=== PATIENT | male | born 1960 | race Caucasian/White ===

== ENCOUNTER 2016-03-20 16:55 | Emergency (ER) | payer OTHER ==
[2016-03-20] MEDS ORDERED: SODIUM CHLORIDE 0.9% 1,000 ML IV STA ×4 (17:04→20:32)
[2016-03-20] MEDS ORDERED: SODIUM CHLORIDE 0.9% 500 ML IV STA (17:04)
[2016-03-20] MEDS ORDERED: RX INFO: IV CONTRAST WAS GIVEN 1 EACH MISC MISCELLANE PRN (17:04)
[2016-03-20] MEDS ORDERED: ACETAMINOPHEN IV (For NPO) 1,000 MG in EMPTY BAG 1 BAG IVPB STA (17:05)
[2016-03-20 17:10] LABS: Glucose,Whole Blood 149 mg/dL (75-99)
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
[2016-03-20 17:34] LABS: Basophils % (A) 0 %; CH 33.8; CHCM 34.8; Eosinophils # (A) 0.1 k/uL (0-0.7); Eosinophils % (A) 2 %; HDW 2.35; HGB 13.6 gm/dL (13.0-17.5); Luc # (Auto) 0.13; Luc % (Auto) 3; Lymphocytes # (A) 1.8 k/uL (1.0-4.8); Lymphocytes % (A) 37 %; MCH 32.3 pg (25.0-35.0); MCHC 33.2 g/dL (31.0-37.0); MCV 97.4 fL (80.0-100.0); Mean Platelet Volume 7.3; Monocytes # (A) 0.4 k/uL (0-1.0); Monocytes % (A) 8 %; Neutrophils # (A) 2.5 k/uL (1.3-7.7); Neutrophils % (A) 51 %; RBC 4.21 m/uL (4.30-5.90); RDW 12.4 % (11.5-15.5); WBC 4.9 k/uL (3.8-10.6); WBC (Perox) 5.01
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
[2016-03-20 17:40] LABS: INR 1.1 (<1.1); Prothrombin Time 10.6 sec (9.0-12.0)
[2016-03-20 17:44] LABS: ALT 74 U/L (21-72); AST 107 U/L (17-59); Alkaline Phosphatase 59 U/L (38-126); Anion Gap 19 mmol/L; Blood Urea Nitrogen 14 mg/dL (9-20); Calcium 9.3 mg/dL (8.4-10.2); Carbon Dioxide 19 mmol/L (22-30); Chloride 106 mmol/L (98-107); Glucose 143 mg/dL (74-99); Non-African American GFR(MDRD) >60 (>60 ml/min/1.73 sqM); Potassium 3.4 mmol/L (3.5-5.1); Sodium 144 mmol/L (137-145); Total Bilirubin 0.7 mg/dL (0.2-1.3); Total Protein 7.7 g/dL (6.3-8.2)
[2016-03-20 17:50] LABS: Alcohol 143 mg/dL
[2016-03-20 18:03] LABS: Creatine Kinase 414 U/L (55-170)
[2016-03-20 18:08] LABS: Appearance,Urine Clear (Clear); Bilirubin,Urine Negative (Negative); Glucose,Urine (UA) Negative (Negative); Ketones,Urine Trace (Negative); Leukocyte Esterase,Urine Negative (Negative); Mucus,Urine Rare /hpf; Nitrite,Urine Negative (Negative); PH, Urine 6.5 (5.0-8.0); Particle Count 3909; Protein,Urine 1+ (Negative); RBC,Urine 3 /hpf (0-5); Specific Gravity,Urine 1.018 (1.001-1.035); UA Billing (MACRO vs. MICRO) MICRO; Urobilinogen,Urine <2.0 mg/dL (<2.0); WBC,Urine 1 /hpf (0-5)
[2016-03-20 18:15] LABS: Troponin I <0.012 ng/mL (0.000-0.034)
[2016-03-20 18:16] LABS: Creatine Kinase MB 3.9 ng/mL (0.0-2.4)
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
[2016-03-20] MEDS ORDERED: ceFAZolin 2 GM in SODIUM CHLORIDE 0.9% 100 ML IVPB STA (18:40)
[2016-03-20] MEDS ORDERED: DIPH,PERTUS(ACELL)TETVAC-LF 0.5 ML VIAL IM ONE (18:41)
[2016-03-20] MEDS ORDERED: MORPHINE SULFATE 4 MG/ML SYRINGE IVP STA (18:48)
[2016-03-20] MEDS ORDERED: LORazepam 2 MG/ML SYRINGE IV STA (20:32)
[2016-03-20] MEDS ORDERED: levETIRAcetam IV 1,500 MG in SALINE 1 100ML.BAG IVPB STA (20:32)
--- NOTE | 2016-03-20 21:53 | CT ---
EXAMINATION TYPE: CT brain wo con DATE OF EXAM: 03/20/2016 9:46 PM COMPARISON: Today HISTORY: Seizure today. CT DLP: 1198.00 mGycm Automated exposure control for dose reduction was used. FINDINGS: There is cerebral cortical atrophy. There is no mass effect or midline shift. There is no sign of int racranial hemorrhage. There is mucosal thickening in the left maxillary sinus extending into the left nasopharynx. Calvarium is intact. IMPRESSION: Cerebral atrophy. No acute intracranial abnormality. No change. Expansile mucosal thickening in left maxillary sinus is unchanged.
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
[2016-03-20 22:39] VITALS: TEMP 99.1
[2016-03-20 22:41] VITALS: RESP 18
[2016-03-20 23:04] VITALS: BP 137/78; PULSE 115
[2016-03-21] MEDS ORDERED: levETIRAcetam IV 1,000 MG in SALINE 1 100ML.BAG IVPB SCH (09:00)
== END 2016-03-20 23:26 | disposition home or self-care (01) ==
LOC: EC 16:55
DX: S01.511A Laceration without foreign body of lip, initial encounter (principal); S06.9X1A Unspecified intracranial injury with loss of consciousness of 30 minutes or less, initial encounter; S03.2XXA Dislocation of tooth, initial encounter; S00.81XA Abrasion of other part of head, initial encounter; F10.129 Alcohol abuse with intoxication, unspecified; Y90.6 Blood alcohol level of 120-199 mg/100 ml; V19.9XXA Pedal cyclist (driver) (passenger) injured in unspecified traffic accident, initial encounter; F17.200 Nicotine dependence, unspecified, uncomplicated; Z23 Encounter for immunization
CPT/HCPCS: 12014; 99291; 96365; 90471; 96367; 96375; 36415; 93005; 86900; 86901; 80053; 82550; 82553; 84484; 85025; 85610; 85730; 86850; 81001; 80306; 80320; 71010; 72170; 72125; 70486; 70450; 71260; 74177; 90715; 96361; J2060; J2270; J0690; Q9967; J0131; J1953

== ENCOUNTER 2016-05-04 12:21 | Inpatient (IN) | payer OTHER ==
[2016-05-04] MEDS ORDERED: SODIUM CHLORIDE 0.9% 1,000 ML IV STA (12:45)
[2016-05-04] MEDS ORDERED: LORazepam 2 MG/ML SYRINGE IV STA ×2 (12:45→14:17)
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
[2016-05-04 13:21] LABS: Basophils % (A) 0 %; CH 33.4; CHCM 34.3; Eosinophils % (A) 1 %; HCT 41.1 % (39.0-53.0); HDW 2.56; HGB 13.7 gm/dL (13.0-17.5); Luc # (Auto) 0.18; Luc % (Auto) 2; Lymphocytes % (A) 26 %; MCH 32.6 pg (25.0-35.0); MCHC 33.3 g/dL (31.0-37.0); MCV 97.8 fL (80.0-100.0); Mean Platelet Volume 7.7; Monocytes # (A) 0.3 k/uL (0-1.0); Monocytes % (A) 4 %; Neutrophils # (A) 4.9 k/uL (1.3-7.7); Neutrophils % (A) 67 %; RDW 13.1 % (11.5-15.5); WBC 7.4 k/uL (3.8-10.6); WBC (Perox) 7.51
--- NOTE | 2016-05-04 13:31 | XR ---
EXAMINATION TYPE: XR chest 1V DATE OF EXAM: 05/04/2016 1:25 PM HISTORY: Seizure. REFERENCE: Previous study dated 03/20/2016. FINDINGS: The lungs are clear. Pleural spaces are clear. Heart size is normal. IMPRESSION: NORMAL CHEST.
[2016-05-04 13:37] LABS: ALT 21 U/L (21-72); AST 32 U/L (17-59); Alcohol 14 mg/dL; Alkaline Phosphatase 71 U/L (38-126); Anion Gap 23 mmol/L; Blood Urea Nitrogen 9 mg/dL (9-20); Calcium 10.1 mg/dL (8.4-10.2); Carbon Dioxide 14 mmol/L (22-30); Chloride 109 mmol/L (98-107); Glucose 144 mg/dL (74-99); Non-African American GFR(MDRD) >60 (>60 ml/min/1.73 sqM); Potassium 3.9 mmol/L (3.5-5.1); Sodium 146 mmol/L (137-145); Total Bilirubin 0.7 mg/dL (0.2-1.3); Total Protein 7.8 g/dL (6.3-8.2)
[2016-05-04] MEDS ORDERED: LORazepam 2 MG/ML SYRINGE IV PRN ×3 (14:16)
[2016-05-04] MEDS ORDERED: SODIUM CHLORIDE 0.9% 1,000 ML with MVI, ADULT NO.4 WITH VIT K 10 ML, THIAMINE 100 MG, F... IV ONE ×4 (14:17)
[2016-05-04] MEDS ORDERED: NALOXONE 0.4 MG/ML 1 ML VIAL IV PRN (14:19)
[2016-05-04] MEDS ORDERED: ONDANSETRON 4 MG/2 ML VIAL IVP PRN (14:19)
[2016-05-04 15:02] LABS: Magnesium 1.9 mg/dL (1.6-2.3)
[2016-05-04] MEDS: THIAMINE 100 MG TAB PO SCH (17:51)
[2016-05-04] MEDS ORDERED: cloNIDine HCL 0.1 MG TAB PO PRN (20:10)
[2016-05-04] MEDS ORDERED: TEMAZEPAM 15 MG CAP PO PRN (20:10)
[2016-05-04] MEDS ORDERED: HYDROcodone/APAP 5-325MG 1 EACH TAB PO PRN (20:10)
[2016-05-04 21:34] LABS: Creatine Kinase 129 U/L (55-170)
[2016-05-04] MEDS: cloNIDine HCL 0.1 MG TAB PO SCH (21:49)
[2016-05-04] MEDS: HEPARIN SODIUM,PORCINE 5,000 UNIT/ML 1 ML VIAL SQ SCH (22:27)
[2016-05-04 23:22] LABS: Appearance,Urine Clear (Clear); Bilirubin,Urine Negative (Negative); Glucose,Urine (UA) Negative (Negative); Ketones,Urine Negative (Negative); Leukocyte Esterase,Urine Negative (Negative); Nitrite,Urine Negative (Negative); Protein,Urine Negative (Negative); Specific Gravity,Urine 1.014 (1.001-1.035); UA Billing (MACRO vs. MICRO) CHEM; Urobilinogen,Urine <2.0 mg/dL (<2.0)
[2016-05-05] MEDS: 0.9% NACL WITH KCL 20 MEQ/L 1,000 ML with MVI, ADULT NO.4 WITH VIT K 10 ML, THIAMINE 10... IV SCH ×12 (08:08→16:17)
[2016-05-05] MEDS: HEPARIN SODIUM,PORCINE 5,000 UNIT/ML 1 ML VIAL SQ SCH ×2 (08:29→20:13)
[2016-05-05] MEDS: cloNIDine HCL 0.1 MG TAB PO SCH ×2 (08:29→20:13)
[2016-05-05] MEDS: PANTOPRAZOLE 40 MG TABLET PO SCH (08:29)
[2016-05-05 08:39] LABS: Basophils % (A) 0 %; CH 33.1; CHCM 34.5; Eosinophils # (A) 0.1 k/uL (0-0.7); Eosinophils % (A) 3 %; HCT 37.4 % (39.0-53.0); HDW 2.52; HGB 12.6 gm/dL (13.0-17.5); Luc # (Auto) 0.12; Luc % (Auto) 3; Lymphocytes # (A) 1.3 k/uL (1.0-4.8); Lymphocytes % (A) 27 %; MCH 32.5 pg (25.0-35.0); MCHC 33.7 g/dL (31.0-37.0); MCV 96.4 fL (80.0-100.0); Mean Platelet Volume 7.9; Monocytes # (A) 0.2 k/uL (0-1.0); Monocytes % (A) 5 %; Neutrophils # (A) 3.1 k/uL (1.3-7.7); Neutrophils % (A) 63 %; RBC 3.88 m/uL (4.30-5.90); RDW 12.9 % (11.5-15.5); WBC (Perox) 5.06
[2016-05-05 08:51] LABS: Anion Gap 12 mmol/L; Blood Urea Nitrogen 9 mg/dL (9-20); Calcium 9.2 mg/dL (8.4-10.2); Carbon Dioxide 19 mmol/L (22-30); Chloride 109 mmol/L (98-107); Glucose 91 mg/dL (74-99); Non-African American GFR(MDRD) >60 (>60 ml/min/1.73 sqM); Potassium 3.6 mmol/L (3.5-5.1); Sodium 140 mmol/L (137-145)
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
[2016-05-05] MEDS: THIAMINE 100 MG TAB PO SCH ×2 (11:03→16:18)
[2016-05-06 07:32] VITALS: BP 141/88; PULSE 72; RESP 16; TEMP 97
[2016-05-06 09:37] LABS: Basophils % (A) 0 %; Eosinophils # (A) 0.1 k/uL (0-0.7); Eosinophils % (A) 3 %; HCT 35.6 % (39.0-53.0); HDW 2.51; HGB 11.9 gm/dL (13.0-17.5); Luc # (Auto) 0.08; Luc % (Auto) 2; Lymphocytes # (A) 0.9 k/uL (1.0-4.8); Lymphocytes % (A) 24 %; MCH 32.6 pg (25.0-35.0); MCHC 33.4 g/dL (31.0-37.0); MCV 97.6 fL (80.0-100.0); Mean Platelet Volume 6.9; Monocytes # (A) 0.2 k/uL (0-1.0); Monocytes % (A) 7 %; Neutrophils # (A) 2.4 k/uL (1.3-7.7); Neutrophils % (A) 64 %; RBC 3.65 m/uL (4.30-5.90); RDW 13.1 % (11.5-15.5); WBC 3.7 k/uL (3.8-10.6); WBC (Perox) 3.84
[2016-05-06] MEDS: cloNIDine HCL 0.1 MG TAB PO SCH (09:54)
[2016-05-06] MEDS: PANTOPRAZOLE 40 MG TABLET PO SCH (09:54)
[2016-05-06] MEDS: HEPARIN SODIUM,PORCINE 5,000 UNIT/ML 1 ML VIAL SQ SCH (09:54)
[2016-05-06 10:00] LABS: Anion Gap 10 mmol/L; Blood Urea Nitrogen 12 mg/dL (9-20); Calcium 9.2 mg/dL (8.4-10.2); Carbon Dioxide 21 mmol/L (22-30); Chloride 108 mmol/L (98-107); Glucose 115 mg/dL (74-99); Non-African American GFR(MDRD) >60 (>60 ml/min/1.73 sqM); Potassium 4.1 mmol/L (3.5-5.1); Sodium 139 mmol/L (137-145)
--- NOTE | 2016-05-06 11:03 | PN ---
DATE OF SERVICE: 05/05/2016 This 55-year-old gentleman admitted with a seizure disorder and alcoholism, is being closely monitored. The patient appears to be improving from the withdrawals, seizures. Neurology evaluation pending. No chest pain, no palpitation, no fever On exam, alert and oriented x2. Pulse 76, blood pressure 114/77, respiration 20, temperature 98.8, pulse ox 97% on room air. HEENT: Conjunctivae normal. NECK: No jugular venous distention. HEART: S1 and S2, muffled. RESPIRATORY: Breath sounds diminished at the bases. ABDOMEN: Soft, no tenderness. EXTREMITIES: Legs no edema, no swelling. NERVOUS: No focal deficits. LABS: WBC 5, hemoglobin 12.6. Sodium 140. ASSESSMENT: 1. Acute seizure disorder, possible alcohol induced seizures. 2. Hypernatremia. 3. Decreased CO2. 4. Increased random blood sugar. 5. History of EtOH intoxication as well as early delirium tremens. 6. History nicotine dependence. 7. Full code. RECOMMENDATIONS AND DISCUSSION: Recommend to continue current medications, continue to monitor, continue current treatment. Otherwise, at this time I would recommend continue with seizure protocol, closely follow with Neurology. Further recommendations to follow.
[2016-05-06] MEDS: THIAMINE 100 MG TAB PO SCH (11:45)
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
--- NOTE | 2016-05-06 16:42 | DS ---
DATE OF ADMISSION: 05/04/2016 DATE OF DISCHARGE: 05/06/2016 FINAL DIAGNOSES: 1. Acute seizure disorder, possible alcohol withdrawal seizures. 2. Hypernatremia, improved secondary to dehydration. 3. Decreased CO2. 4. History of increased random blood sugar. 5. History of Ethyl alcohol intoxication as well as early delirium tremens. 6. History of nicotine dependence. 7. FULL CODE. DISCHARGE DISPOSITION: The patient will be discharged in a stable condition with guarded prognosis. Neurology cleared the patient for discharge. HISTORY OF PRESENT ILLNESS: This is 55-year-old gentleman admitted with seizures and significant delirium tremens and there are alcohol issues. Treated symptomatically, improved significantly. On exam, vitals are stable. CARDIOVASCULAR: S1, S2, muffled. ABDOMEN: Soft. NERVOUS SYSTEM: No focal deficits. Neurology saw the patient, hemoglobin was 11.9. DISCHARGE ADVICE: 1. Diet is cardiac. 2. Activity limited until followup. 3. Follow up with Dr. Harris in 2 to 3 days. 4. Follow up with Dr. Ren as advised. 5. No alcohol and attend AA and rehab. MEDICATIONS: 1. Folic acid 1 mg p.o. daily. 2. Ativan 1 mg t.i.d. p.r.n. 3. Multivitamin 1 p.o. daily. 4. Thiamine 100 mg p.o. daily. 5. Catapres 0.1 p.o. b.i.d. Once again, the patient will be discharged in a stable condition with guarded prognosis.
== END 2016-05-06 15:02 | disposition home or self-care (01) | DRG 897 ==
LOC: EC 12:21 → 4MS4W 14:14
PROVIDERS: ADMIT Internal Medicine; ATTEND Internal Medicine
DX: F10.231 Alcohol dependence with withdrawal delirium (principal); E87.0 Hyperosmolality and hypernatremia; E87.2 Acidosis; G40.909 Epilepsy, unspecified, not intractable, without status epilepticus; Y90.0 Blood alcohol level of less than 20 mg/100 ml; E86.0 Dehydration; F17.200 Nicotine dependence, unspecified, uncomplicated; Z79.899 Other long term (current) drug therapy
CPT/HCPCS: 36415; 71010; 80048; 80053; 80306; 80320; 81003; 82550; 83735; 84484; 85025; 93005; 96361; 96365; 96375; 99285

== ENCOUNTER 2016-07-27 16:22 | Inpatient (IN) | payer OTHER ==
[2016-07-27] MEDS ORDERED: SODIUM CHLORIDE 0.9% 1,000 ML IV STA ×2 (17:23)
[2016-07-27] MEDS ORDERED: DIPH,PERTUS(ACELL)TETVAC-LF 0.5 ML VIAL IM ONE (17:25)
--- NOTE | 2016-07-27 17:27 | ED ---
General Adult HPI - General Chief complaint: Seizure Stated complaint: seizure Time Seen by Provider: 07/27/16 17:12 Source: patient, RN notes reviewed Mode of arrival: EMS Limitations: no limitations - History of Present Illness Initial comments: Patient is a pleasant 55-year-old male presenting to the emergency department following seizure. Patient does not recall the episode. Patient states he was helping a neighbor move. Patient admits to drinking alcohol. Patient also admits to drinking alcohol yesterday. Patient has had several seizures previously always associated with alcohol use. Patient feels fatigued at this time otherwise no complaints. Patient believes she did strike his head however denies any significant discomfort. No other areas of injury except for scratch on his right knee. Unclear last tetanus immunization. - Related Data Previous Rx's Medication Instructions Recorded Folic Acid 1 mg PO DAILY #30 tablet 05/06/16 LORazepam [Ativan] 1 mg PO TID PRN #40 tab 05/06/16 Thiamine [Vitamin B-1] 100 mg PO BID@1200,1700 #30 tab 05/06/16 cloNIDine HCL [Catapres] 0.1 mg PO BID #60 tab 05/06/16 Allergies Allergy/AdvReac Type Severity Reaction Status Date / Time No Known Allergies Allergy Verified 07/27/16 16:40 Review of Systems ROS Statement: Those systems with pertinent positive or pertinent negative responses have been documented in the HPI. ROS Other: All systems not noted in ROS Statement are negative. Constitutional: Denies: fever Eyes: Denies: eye pain ENT: Denies: ear pain Respiratory: Denies: cough Cardiovascular: Denies: chest pain Endocrine: Reports: fatigue Gastrointestinal: Denies: abdominal pain Genitourinary: Denies: urgency Musculoskeletal: Denies: back pain Skin: Denies: lesions Neurological: Denies: headache Past Medical History Past Medical History: Seizure Disorder Additional Past Medical History / Comment(s): ALCOHOL ABUSE History of Any Multi-Drug Resistant Organisms: None Reported Past Surgical History: Unable to Obtain Additional Past Surgical History / Comment(s): Three surgeries on left knee Past Anesthesia/Blood Transfusion Reactions: No Reported Reaction Past Psychological History: No Psychological Hx Reported Smoking Status: Current every day smoker Past Alcohol Use History: Abuse, Daily Past Drug Use History: None Reported - Past Family History Mother Family Medical History: CVA/TIA Additional Family Medical History / Comment(s): Cancer Father Family Medical History: Coronary Artery Disease (CAD), Hypertension General Exam Limitations: no limitations General appearance: alert, in no apparent distress Head exam: Present: normocephalic, other (Abrasion left eyebrow) Eye exam: Present: normal appearance, PERRL, EOMI. Absent: nystagmus ENT exam: Present: normal oropharynx Neck exam: Present: normal inspection Respiratory exam: Present: normal lung sounds bilaterally Cardiovascular Exam: Present: normal rhythm, tachycardia GI/Abdominal exam: Present: soft. Absent: distended, tenderness Extremities exam: Present: normal inspection Neurological exam: Present: alert, oriented X3, CN II-XII intact. Absent: motor sensory deficit Expanded Patient oriented to: Present: person, place, time Speech: Present: fluid speech Cranial nerves: EOM's Intact: Normal Sensory exam: Upper Extremity Light Touch: Normal, Lower Extremity Light Touch: Normal Motor strength exam: RUE: 5, LUE: 5, RLE: 5, LLE: 5 Eye Response: (4) open spontaneously Motor Response: (6) obeys commands Verbal Response: (5) oriented Psychiatric exam: Present: normal affect, normal mood Skin exam: Present: abrasion (Right knee and left eyebrow) Course Vital Signs 07/27/16 07/27/16 16:37 17:30 Temperature 98.5 F Pulse Rate 128 H 107 H Respiratory 20 18 Rate Blood Pressure 133/83 127/85 O2 Sat by Pulse 97 99 Oximetry EKG Findings - EKG Comments: EKG Findings:: Sinus tachycardia 120. VA 170. QRS 88. QT 332. QTC 469. Normal axis. Normal QRS. Normal ST-T. Medical Decision Making - Medical Decision Making Patient reevaluated and resting comfortably in bed. Patient is symptom-free. Patient states his brother can come pick him up. Patient advised to avoid alcohol. - Lab Data Result diagrams: 07/27/16 16:30 07/27/16 16:30 Lab Results 07/27/16 07/27/16 Range/Units 16:30 16:30 WBC 4.6 (3.8-10.6) k/uL RBC 4.35 (4.30-5.90) m/uL Hgb 14.4 (13.0-17.5) gm/dL Hct 42.5 (39.0-53.0) % MCV 97.6 (80.0-100.0) fL MCH 33.1 (25.0-35.0) pg MCHC 33.9 (31.0-37.0) g/dL RDW 14.0 (11.5-15.5) % Plt Count 81 L (150-450) k/uL Neutrophils % 51 % Lymphocytes % 38 % Monocytes % 7 % Eosinophils % 1 % Basophils % 1 % Neutrophils # 2.4 (1.3-7.7) k/uL Lymphocytes # 1.7 (1.0-4.8) k/uL Monocytes # 0.3 (0-1.0) k/uL Eosinophils # 0.1 (0-0.7) k/uL Basophils # 0.0 (0-0.2) k/uL Manual Slide Review Performed Sodium 145 (137-145) mmol/L Potassium 3.4 L (3.5-5.1) mmol/L Chloride 106 (98-107) mmol/L Carbon Dioxide 16 L (22-30) mmol/L Anion Gap 23 mmol/L BUN 14 (9-20) mg/dL Creatinine 0.74 (0.66-1.25) mg/dL Est GFR (MDRD) Af Amer >60 (>60 ml/min/1.73 sqM) Est GFR (MDRD) Non-Af >60 (>60 ml/min/1.73 sqM) Glucose 134 H (74-99) mg/dL Calcium 9.0 (8.4-10.2) mg/dL Magnesium 2.0 (1.6-2.3) mg/dL Total Bilirubin 0.8 (0.2-1.3) mg/dL AST 74 H (17-59) U/L ALT 58 (21-72) U/L Alkaline Phosphatase 58 (38-126) U/L Total Protein 7.7 (6.3-8.2) g/dL Albumin 4.9 (3.5-5.0) g/dL Serum Alcohol 186 mg/dL - Radiology Data Radiology results: report reviewed (Computed tomography scan of the brain shows periventricular mild white matter ischemic change.) Disposition Clinical Impression: Generalized seizure Disposition: HOME SELF-CARE Condition: Stable Instructions: Recurrent Seizures in Adults (ED), Abuse of Alcohol (ED) Additional Instructions: Discontinue alcohol use. Return for seizures, headache or weakness, confusion, worsening symptoms or other concerns. Referrals: None,Stated [Primary Care Provider] - 1-2 days Cj Frankel MD [STAFF PHYSICIAN] - 1-2 days Time of Disposition: 18:29
[2016-07-27 17:53] LABS: Basophils % (A) 1 %; CH 33.7; CHCM 34.7; Eosinophils # (A) 0.1 k/uL (0-0.7); Eosinophils % (A) 1 %; HCT 42.5 % (39.0-53.0); HDW 2.51; HGB 14.4 gm/dL (13.0-17.5); Luc # (Auto) 0.13; Luc % (Auto) 3; Lymphocytes # (A) 1.7 k/uL (1.0-4.8); Lymphocytes % (A) 38 %; MCH 33.1 pg (25.0-35.0); MCHC 33.9 g/dL (31.0-37.0); MCV 97.6 fL (80.0-100.0); Mean Platelet Volume 7.9; Monocytes # (A) 0.3 k/uL (0-1.0); Monocytes % (A) 7 %; Neutrophils # (A) 2.4 k/uL (1.3-7.7); Neutrophils % (A) 51 %; RBC 4.35 m/uL (4.30-5.90); WBC 4.6 k/uL (3.8-10.6); WBC (Perox) 4.57
--- NOTE | 2016-07-27 17:53 | CT ---
EXAMINATION TYPE: CT brain wo con DATE OF EXAM: 07/27/2016 COMPARISON: 03/20/2016 INDICATION: seizure today with trauma DLP: 1260 mGycm, Automated exposure control for dose reduction was used. CONTRAST: None CT of the brain is performed utilizing 3 mm thick sections through the posterior fossa and 3 mm thick sections through the remaining calvarium. Study is performed within 24 hours of arrival to the hosp ital. No abnormal hyperdensity is present to suggest an acute intracranial hemorrhage. No mass lesion is evident. No acute infarcts are evident. Mild periventricular white matter hypodensity is present, likely on th e basis of chronic white matter ischemic changes. Ventricles and sulci are appropriate for the patient age. There is opacification of the left maxillary sinus. Opacification of the anterior mid left ethmoid air cells. Frontal sinuses are hypoplastic. Mastoid ai r cells are clear. IMPRESSIONS: 1. Mild periventricular white matter ischemic changes. 2. Opacification of the left maxillary sinus with milder mucosal thickening within ethmoid air cells.
[2016-07-27 18:01] LABS: ALT 58 U/L (21-72); AST 74 U/L (17-59); Alkaline Phosphatase 58 U/L (38-126); Anion Gap 23 mmol/L; Blood Urea Nitrogen 14 mg/dL (9-20); Carbon Dioxide 16 mmol/L (22-30); Chloride 106 mmol/L (98-107); Glucose 134 mg/dL (74-99); Non-African American GFR(MDRD) >60 (>60 ml/min/1.73 sqM); Potassium 3.4 mmol/L (3.5-5.1); Sodium 145 mmol/L (137-145); Total Bilirubin 0.8 mg/dL (0.2-1.3); Total Protein 7.7 g/dL (6.3-8.2)
[2016-07-27 18:03] LABS: Alcohol 186 mg/dL
[2016-07-27 18:10] LABS: Manual Review Performed
[2016-07-27] MEDS ORDERED: LORazepam 2 MG/ML SYRINGE IV STA (18:40)
--- NOTE | 2016-07-27 19:10 | ED ---
Medical Decision Making - Medical Decision Making Prior to completion of sharp patient had a seizure lasting approximately 1 minute emergency department. Patient was provided Ativan. Patient will be observed secondary to seizures. Case was discussed with Dr. barrow, who will admit for hospital call. He recommends Valium 10 mg every 6 hours as well as Lopressor 25 mg twice a day. - Lab Data Result diagrams: 07/27/16 16:30 07/27/16 16:30 Lab Results 07/27/16 07/27/16 Range/Units 16:30 16:30 WBC 4.6 (3.8-10.6) k/uL RBC 4.35 (4.30-5.90) m/uL Hgb 14.4 (13.0-17.5) gm/dL Hct 42.5 (39.0-53.0) % MCV 97.6 (80.0-100.0) fL MCH 33.1 (25.0-35.0) pg MCHC 33.9 (31.0-37.0) g/dL RDW 14.0 (11.5-15.5) % Plt Count 81 L (150-450) k/uL Neutrophils % 51 % Lymphocytes % 38 % Monocytes % 7 % Eosinophils % 1 % Basophils % 1 % Neutrophils # 2.4 (1.3-7.7) k/uL Lymphocytes # 1.7 (1.0-4.8) k/uL Monocytes # 0.3 (0-1.0) k/uL Eosinophils # 0.1 (0-0.7) k/uL Basophils # 0.0 (0-0.2) k/uL Manual Slide Review Performed Sodium 145 (137-145) mmol/L Potassium 3.4 L (3.5-5.1) mmol/L Chloride 106 (98-107) mmol/L Carbon Dioxide 16 L (22-30) mmol/L Anion Gap 23 mmol/L BUN 14 (9-20) mg/dL Creatinine 0.74 (0.66-1.25) mg/dL Est GFR (MDRD) Af Amer >60 (>60 ml/min/1.73 sqM) Est GFR (MDRD) Non-Af >60 (>60 ml/min/1.73 sqM) Glucose 134 H (74-99) mg/dL Calcium 9.0 (8.4-10.2) mg/dL Magnesium 2.0 (1.6-2.3) mg/dL Total Bilirubin 0.8 (0.2-1.3) mg/dL AST 74 H (17-59) U/L ALT 58 (21-72) U/L Alkaline Phosphatase 58 (38-126) U/L Total Protein 7.7 (6.3-8.2) g/dL Albumin 4.9 (3.5-5.0) g/dL Serum Alcohol 186 mg/dL Disposition Clinical Impression: Generalized seizure Disposition: ADMITTED IP TO THIS HOSP Condition: Stable Instructions: Abuse of Alcohol (ED), Recurrent Seizures in Adults (ED) Additional Instructions: Discontinue alcohol use. Return for seizures, headache or weakness, confusion, worsening symptoms or other concerns. Referrals: Cj Frankel MD [STAFF PHYSICIAN] - 1-2 days None,Stated [Primary Care Provider] - 1-2 days Decision Time: 19:10
[2016-07-27] MEDS ORDERED: NALOXONE 0.4 MG/ML 1 ML VIAL IV PRN (19:11)
[2016-07-27] MEDS ORDERED: LORazepam 2 MG/ML SYRINGE IV PRN (19:14)
[2016-07-27] MEDS ORDERED: THIAMINE 100 MG/ML 2 ML VIAL IM STA (19:14)
[2016-07-27] MEDS ORDERED: SODIUM CHLORIDE 0.9% 1,000 ML IV SCH (19:15)
[2016-07-27] MEDS: FAMOTIDINE 20 MG TAB PO SCH (21:23)
[2016-07-27] MEDS: METOPROLOL TARTRATE 25 MG TAB PO SCH (21:23)
[2016-07-27] MEDS: DIAZEPAM 5 MG TAB PO SCH (21:48)
[2016-07-28 07:30] VITALS: BP 130/91; PULSE 84; RESP 16; TEMP 98.7
[2016-07-28] MEDS: FAMOTIDINE 20 MG TAB PO SCH (08:28)
[2016-07-28] MEDS: METOPROLOL TARTRATE 25 MG TAB PO SCH (08:28)
[2016-07-28] MEDS: DIAZEPAM 5 MG TAB PO SCH ×3 (08:32→17:13)
[2016-07-28] MEDS: THIAMINE 100 MG TAB PO SCH ×2 (12:19→17:13)
[2016-07-28] MEDS ORDERED: POTASSIUM CHLORIDE ER 20 MEQ TAB.ER PO STA (13:06)
[2016-07-28] MEDS ORDERED: NICOTINE 21MG/24HR PATCH TRANSDERM SCH (13:15)
[2016-07-28] MEDS ORDERED: levETIRAcetam 500 MG TAB PO SCH (13:15)
--- NOTE | 2016-07-28 17:59 | HP ---
DATE OF ADMISSION: 07/27/2016 PRESENTING COMPLAINT: Seizure. HISTORY OF PRESENTING COMPLAINT: This is a 55-year-old patient who does not have a family doctor. History of drinking alcohol for a long time, also, smokes. Patient was helping his neighbor move. He was putting ( ) under a truck. Next thing he knows that he was traveling to the hospital. The patient did have a seizure 2 months ago, was in the hospital, never really followed up with anybody. Continues to drink alcohol. He was seen by Dr. Ren on the last admission. No medication was started. He recommended an outpatient. EEG. The patient is feeling better. Tolerating his lunch, sitting up. Patient is on ( ) Valium. REVIEW OF SYSTEMS: CONSTITUTIONAL: None. HEENT: None. RESPIRATORY: None. CARDIOVASCULAR: None. GASTROINTESTINAL: Heartburn. GENITOURINARY: None. MUSCULOSKELETAL: None. DERMATOLOGIC: None. HEMATOLOGIC: None. LYMPHATIC: None. PSYCHIATRY: None. NEUROLOGICAL: Seizures. PAST MEDICAL HISTORY: GERD, seizure disorder, alcohol abuse. PAST SURGICAL HISTORY: Three surgeries on the left knee. SOCIAL HISTORY: Lives by himself. Smokes a pack a day for 39 years. Drinks about a pint of vodka. Retired. FAMILY HISTORY: Stroke and cancer. HOME MEDICATIONS: 1. Catapres 0.1 mg p.o. b.i.d. 2. Thiamine 100 mg p.o. b.i.d. 3. Ativan 1 mg t.i.d. p.r.n. 4. Folic acid. ALLERGIES: None. On examination, temperature 99, pulse 122, respirations 20, blood pressure 111/63, pulse ox 99% on 2 L this was yesterday evening. GENERAL APPEARANCE: Sitting up, eating his lunch. EYES: Pupils equal. Conjunctivae normal. HENT: Oral cavity normal. NECK: JVD not raised. Mass not palpable. RESPIRATORY: Effort normal. Lungs are clear. CARDIOVASCULAR: First and second sounds normal. No edema. ABDOMEN: Soft, nontender. Liver and spleen not palpable. LYMPHATIC: No lymph node palpable in the neck or axillae. PSYCHIATRY: Alert and oriented x3. Mood and affect normal. NEUROLOGICAL: Pupils equal. Cranial nerves grossly intact. Power and sensation grossly intact. Mild tremors. INVESTIGATIONS: White count 4.6, hemoglobin 14.4, platelets 81. Potassium 3.4. AST 74. Serum alcohol 186. ASSESSMENT: 1. Acute alcohol intoxication. 2. Seizure activity secondary to alcoholism. 3. Alcoholic hepatitis. 4. Hypokalemia. 5. Thrombocytopenia from alcoholism. 6. Chronic nicotine dependence. Patient is a smoker. PLAN: Patient is put on Valium, beta pauline to cut back sympathetic drive. Given a nicotine patch. I will also start the patient Keppra 500 mg q.12. I did discuss with the patient about no driving and following up with Dr. Ren as an outpatient. I will see how the patient does and go from there.
--- NOTE | 2016-07-30 21:39 | DS ---
DATE OF ADMISSION: 07/27/2016 DATE OF DISCHARGE: 07/28/2016 FINAL DIAGNOSES: 1. Acute alcohol intoxication, present on admission. 2. Seizure activity secondary to alcoholism. 3. Alcoholic hepatitis. 4. Hypokalemia. 5. Thrombocytopenia from alcoholism. 6. Chronic nicotine dependence. Patient is a smoker. HOSPITAL COURSE: This is a patient who has been drinking alcohol for a long time. He was helping his neighbor move. Last seizure was 2 months ago; never really followed up with any physician. He has continued to drink alcohol. He presented with witnessed seizure activity. Patient was started on Keppra. Patient was quite sober by the time of discharge. Patient was advised to follow up with Dr. Ren upon discharge; also again reminded he is not allowed to drive. On examination, lungs have slightly decreased breath sounds. CARDIOVASCULAR: First and second sounds normal. PSYCH: Alert and oriented x3. Patient able to ambulate normally. DISCHARGE MEDICATIONS: 1. Folic acid 1 mg p.o. daily. 2. Thiamine 100 mg p.o. b.i.d. 3. Valium taper. 4. Disulfiram 500 mg p.o. daily for 7 days, then 250 mg a day. 5. Lopressor 25 mg p.o. b.i.d. 6. Nicotine 20 mg patch. 7. Keppra 500 mg q.12. No driving until further notice. Stop alcohol. Follow up with Dr. Frankel in 2 days. Follow up with Dr. Ren in one week.
== END 2016-07-28 18:20 | disposition home or self-care (01) | DRG 897 ==
LOC: EC 16:22 → 4MS4W 19:11
PROVIDERS: ADMIT Hospitalist; ATTEND Hospitalist
DX: F10.229 Alcohol dependence with intoxication, unspecified (principal); D69.59 Other secondary thrombocytopenia; K70.10 Alcoholic hepatitis without ascites; G40.909 Epilepsy, unspecified, not intractable, without status epilepticus; F17.200 Nicotine dependence, unspecified, uncomplicated; Y90.6 Blood alcohol level of 120-199 mg/100 ml; K21.9 Gastro-esophageal reflux disease without esophagitis; E87.6 Hypokalemia; Z79.899 Other long term (current) drug therapy
CPT/HCPCS: 36415; 70450; 80053; 80320; 83735; 85025; 90471; 90715; 93005; 96361; 96372; 96374; 99285